=== PATIENT | female | born 1990 | race Caucasian/White ===

== ENCOUNTER 2017-02-25 18:39 | Outpatient (CLI) | payer OTHER ==
[2017-02-25 19:35] VITALS: BP 115/70; PULSE 87; RESP 18; TEMP 97.8
--- NOTE | 2017-02-26 08:30 | P.MSEPDOC ---
Presenting Problems - Arrival Data Date of Arrival on Unit: 02/25/17 Time of Arrival on Unit: 18:50 Mode of Transport: Wheelchair - Complaint OB-Reason for Admission/Chief Complaint: Signs/Symptoms UTI Medical History - Information : 3 Para: 2 Term: 2 : 0 Abortions: Spontaneous or Elective: 0 Number of Living Children: 2 - Gestational Age Expected Date of Delivery: 06/07/17 Gestational Age by MEET (wks/days): 25 Weeks and 4 Days Review of Systems - Review of Systems Constitutional: No problems Breast: No problems ENT: No problems Cardiovascular: No problems Respiratory: No problems Gastrointestinal: No problems Genitourinary: Dysuria, Increased frequency Musculoskeletal: No problems Neurological: No problems Skin: No problems Comment: Previously right flank pain onset at 15:00 and at previous visit to [facility] at 17:00 on 02/25 Vital Signs - Temperature Temperature: 97.8 F Temperature Source: Oral - Pulse Right Brachial Pulse Rate: 87 Pulse Assessment Method: Automatic Cuff - Respirations Respiratory Rate: 18 Oxygen Delivery Method: Room Air O2 Sat by Pulse Oximetry: 100 - Blood Pressure Right Arm Blood Pressure: 115/70 Blood Pressure Mean: 85 Blood Pressure Source: Automatic Cuff Medical Screen Scoring (Pre) - Cervical Exam Dilation: Exam Deferred Effacement: Exam Deferred Membranes: Intact - Uterine Contractions Frequency: N/A Duration: N/A Intensity: N/A - Maternal Vital Signs Maternal Temperature: N/A Maternal Blood Pressure: N/A Signs of Preeclampsia: N/A Maternal Respirations: N/A - Maternal Trauma Maternal Trauma: N/A - Total Score Total Score (Pre): 0 - Level of Risk Level of Risk: N/A Physician Notification (Pre) - Physician Notified Physician/Practitioner Notifed:: Dr. Simental Spoke With: Dr. Simental New Order Received: Yes (Discharte) - Notification Comment Comment: Dr. Simental notified of urinalysis results and admission complaints of bladder pains, freq uti, right flank pain previously, now diminished. Discharge instructions to orally hydrate and strain urine, call office in am for follow with dr. Acuna. and to return to [facility] if pain returns Medical Screen Scoring (Post) - Cervical Exam Dilation: Exam Deferred Effacement: Exam Deferred Membranes: Intact - Uterine Contractions Frequency: N/A Duration: N/A Intensity: N/A - Maternal Vital Signs Maternal Temperature: N/A Maternal Blood Pressure: N/A Signs of Preeclampsia: N/A Maternal Respirations: N/A - Maternal Trauma Maternal Trauma: N/A - Total Score Total Score (Post): 0 - Post Treatment Level of Risk Post Treatment Level of Risk: N/A Physician Notification (Post) - Physician Notified Physician Notified Date: 02/25/17 Physician Notified Time: 19:12 Physician/Practitioner Notified:: Dr. Simental Spoke With: Dr. Simental New Order Received: Yes (Discharge Home) - Notification Comment Comment: Dr. Simental notified of pt status. Discharge pt home. Pt instructed to increase fluids and to call on 02/26 and set up apt with Dr. Acuna. Trice Hodges RN, Preceptor. Agrees with evaluation of Radha Martin RN Disposition - Disposition OB Disposition: Discharge to home Discharge Date: 02/25/17 Discharge Time: 19:20 I agree with the RN Medical Screening Exam: Yes Risk & Benefit of care provided described in d/c instruction: Yes Diagnosis: RELATED CONDITIONS, UNSPECIFIED, SECOND TRIMESTER
== END 2017-02-25 19:20 | disposition home or self-care (01) ==
LOC: FBPOP 18:39
PROVIDERS: ATTEND Obstetrics & Gynecology
DX: O99.89 Other specified diseases and conditions complicating pregnancy, childbirth and the puerperium (principal); R30.0 Dysuria; R35.0 Frequency of micturition; Z3A.25 25 weeks gestation of pregnancy

== ENCOUNTER → 2017-02-26 | Outpatient (CLI) | payer OTHER ==
[2017-02-26 12:18] LABS: CH 33.7; CHCM 35.9; HCT 33.9 % (34.0-46.0); HDW 2.91; HGB 12.1 gm/dL (11.4-16.0); MCH 33.6 pg (25.0-35.0); MCHC 35.5 g/dL (31.0-37.0); MCV 94.6 fL (80.0-100.0); Mean Platelet Volume 7.4; RBC 3.59 m/uL (3.80-5.40); RDW 13.5 % (11.5-15.5); WBC 9.5 k/uL (3.8-10.6)
[2017-02-26 12:37] LABS: Non-African American GFR(MDRD) >60 (>60 ml/min/1.73 sqM)
[2017-02-26 13:05] LABS: Hepatitis B Surface Ag Index 0.05
[2017-02-26 19:22] LABS: Treponemal Ab Non-Reactive (Non-Reactive)
[2017-02-27 04:27] LABS: Toxoplasma Antibody (IgG) <3.0 IU/mL (<7.2)
== END | disposition home or self-care (01) ==
LOC: LABWHC1 10:59
PROVIDERS: ATTEND Obstetrics & Gynecology
DX: Z34.82 Encounter for supervision of other normal pregnancy, second trimester (principal); Z3A.00 Weeks of gestation of pregnancy not specified
CPT/HCPCS: 36415; 82565; 82950; 85027; 86762; 86777; 86778; 86780; 86850; 86900; 86901; 87340; 87390

== ENCOUNTER 2017-06-02 08:00 | Inpatient (IN) | payer OTHER ==
[2017-06-02 13:08] VITALS: BMI 24.7
--- NOTE | 2017-06-02 18:53 | P.HPOB ---
History of Present Illness H&P Date: 06/02/17 Chief Complaint: Repeat with tubal This is a 26-year-old female 3 para 2 with an estimated date of confinement of 06/08/2017, estimated gestational age of 39-2/7 weeks, who presents to labor and delivery for scheduled repeat section with bilateral partial salpingectomy. She admits to good movement. She has been feeling irregular mild contractions. She wishes permanent sterilization. Her has been complicated by gestational diabetes. She has been seen by maternal- medicine and has been monitored weekly. She is currently on metformin 500 mg twice daily. Her sugars have been in fairly good control on the metformin. She has been getting twice weekly nonstress tests in addition. labs: GC/chlamydia-negative Obstetrical ultrasound-normal anatomy HIV-nonreactive Syphilis antibody-nonreactive 1 hour Glucola-198 Hepatitis B surface antigen-negative Hemoglobin-12.1 Toxoplasma-negative Rubella-immune Blood type-O+ Antibody screen-negative Group B streptococcus-positive Obstetrical history: . History of 2 previous sections. Gynecologic history: No history of sexual transmitted diseases. Social history: She is single. She is currently unemployed. Review of Systems Constitutional: Denies chills, Denies fever Eyes: denies blurred vision, denies pain Ears, nose, mouth and throat: Denies headache, Denies sore throat Cardiovascular: Denies chest pain, Denies shortness of breath Respiratory: Denies cough Gastrointestinal: Denies abdominal pain, Denies diarrhea, Denies nausea, Denies vomiting Genitourinary: Reports pelvic pain, Reports Musculoskeletal: Reports low back pain Integumentary: Denies pruritus, Denies rash Neurological: Denies numbness, Denies weakness Psychiatric: Denies anxiety, Denies depression Past Medical History Past Medical History: Asthma, GERD/Reflux Additional Past Medical History / Comment(s): gestational diabetes History of Any Multi-Drug Resistant Organisms: None Reported Past Surgical History: Section (2) Past Anesthesia/Blood Transfusion Reactions: No Reported Reaction Past Psychological History: No Psychological Hx Reported Smoking Status: Never smoker Past Alcohol Use History: None Reported Past Drug Use History: None Reported - Past Family History Mother Family Medical History: No Reported History Medications and Allergies Home Medications Medication Instructions Recorded Confirmed Type Pnv No.95/Ferrous Fum/Folic AC 1 each PO DAILY 06/02/17 06/02/17 History [ Multivitamin Tablet] metFORMIN HCL [Glucophage] 500 mg PO BID 06/02/17 06/02/17 History Allergies Allergy/AdvReac Type Severity Reaction Status Date / Time ceftriaxone sodium Allergy Unknown Verified 06/02/17 12:59 [From Rocephin] Exam Osteopathic Statement: *. No significant issues noted on an osteopathic structural exam other than those noted in the History and Physical/Consult. - Vital Signs Vital signs: Intake and Output 06/02/17 06/02/17 06/02/17 06:59 14:59 22:59 Other: Weight 59.421 kg Patient Weight 06/03/17 06:59 Weight 59.421 kg HEENT: Within normal limits Heart: Regular rate and rhythm Lungs: Clear to auscultation bilaterally Abdomen: Cervix: Closed thick high. heart tones: 140s by Doppler Extremities: Negative Homans Assessment and Plan (1) 39 weeks gestation of Status: Acute (2) Previous delivery affecting Status: Acute (3) Family planning Status: Acute Plan: Proceed with repeat low transverse section with bilateral partial salpingectomy. I have discussed the risks, benefits, and alternative therapies for the above- mentioned procedure and for both sedation/anesthesia as well as necessary blood products administration, if indicated, as they pertain to this patient. The patient has indicated her understanding and acceptance of the risks and procedures discussed.
[2017-06-03] MEDS ORDERED: LACTATED RINGERS 1,000 ML IV ONE (06:25)
[2017-06-03] MEDS ORDERED: CLINDAMYCIN 900 MG in DEXTROSE 5% IN WATER 50 ML IVPB STA ×2 (06:25)
[2017-06-03] MEDS ORDERED: LIDOCAINE 1% 20 ML VIAL (10MG/ML) FOR IV START INTRADERMA PRN (06:25)
[2017-06-03] MEDS ORDERED: LACTATED RINGERS 1,000 ML IV SCH (06:25)
[2017-06-03] MEDS ORDERED: CITRIC ACID-SODIUM CITRATE 15 ML CUP PO ONE (06:25)
[2017-06-03 06:57] LABS: Basophils % (A) 0 %; CH 31.3; CHCM 33.2; Eosinophils # (A) 0.2 k/uL (0-0.7); Eosinophils % (A) 2 %; HCT 37.4 % (34.0-46.0); HDW 3.25; HGB 12.3 gm/dL (11.4-16.0); Luc # (Auto) 0.28; Luc % (Auto) 3; Lymphocytes # (A) 2.5 k/uL (1.0-4.8); Lymphocytes % (A) 29 %; MCH 31.4 pg (25.0-35.0); MCV 95.2 fL (80.0-100.0); Mean Platelet Volume 7.9; Monocytes # (A) 0.6 k/uL (0-1.0); Monocytes % (A) 7 %; Neutrophils % (A) 59 %; RBC 3.93 m/uL (3.80-5.40); RDW 14.7 % (11.5-15.5); WBC 8.5 k/uL (3.8-10.6)
[2017-06-03 07:08] LABS: Glucose,Whole Blood 92 mg/dL (75-99)
[2017-06-03] MEDS ORDERED: NALBUPHINE 10 MG/ML AMPUL ONE (07:55)
[2017-06-03] MEDS ORDERED: fentaNYL (PF) 50 MCG/ML 2 ML AMP ONE (07:55)
[2017-06-03] MEDS ORDERED: MORPHINE SULFATE (PF) 0.3 MG/0.3 ML SYR ONE (07:55)
[2017-06-03] MEDS ORDERED: KETOROLAC 30 MG/ML 1 ML VIAL ONE (07:55)
[2017-06-03] MEDS ORDERED: ONDANSETRON 4 MG/2 ML VIAL ONE (07:55)
[2017-06-03] MEDS ORDERED: OXYTOCIN 10 UNIT/ML 1 ML VIAL ONE (07:55)
[2017-06-03] MEDS ORDERED: OXYTOCIN 20 UNITS/1000 ML NS 1,000 ML IV SCH (08:40)
[2017-06-03] MEDS ORDERED: ONDANSETRON 4 MG/2 ML VIAL IVP PRN ×2 (08:40→08:58)
[2017-06-03] MEDS ORDERED: METOCLOPRAMIDE 5 MG/ML 2 ML VIAL IVP PRN (08:40)
[2017-06-03] MEDS ORDERED: ACETAMINOPHEN TAB 325 MG TAB PO PRN (08:40)
[2017-06-03] MEDS ORDERED: LANOLIN CREAM 5 GM TUBE TOPICAL PRN (08:40)
[2017-06-03] MEDS ORDERED: diphenhydrAMINE 50 MG/ML 1 ML VIAL IVP PRN ×2 (08:40→08:58)
[2017-06-03] MEDS ORDERED: diphenhydrAMINE 50 MG CAP PO PRN (08:40)
[2017-06-03] MEDS ORDERED: Acetaminophen-Codeine 300-30mg TAB PO PRN (08:40)
[2017-06-03] MEDS ORDERED: diphenhydrAMINE 25 MG CAP PO PRN (08:40)
[2017-06-03] MEDS ORDERED: ZOLPIDEM 5 MG TAB PO PRN (08:40)
[2017-06-03] MEDS ORDERED: NALOXONE 0.4 MG/ML 1 ML VIAL IV PRN ×2 (08:40→08:58)
--- NOTE | 2017-06-03 08:40 | P.OP ---
Date of Procedure: 06/03/17 Preoperative Diagnosis: 1. Intrauterine at 39-2/7 weeks. 2. History of previous section. 3. Family-planning. 4. Gestational diabetes Postoperative Diagnosis: Same Procedure(s) Performed: Repeat low transverse section with bilateral partial salpingectomy Anesthesia: spinal (Duramorph) Surgeon: Daniella Acuna [employer] Home Attendant #1: Sohail Nash Estimated Blood Loss (ml): 400 Pathology: other (Placenta, portions of right and left fallopian tubes) Condition: stable Disposition: floor Indications for Procedure: This is a 26-year-old female 2 para 0 at 39-2/7 weeks who presents for scheduled repeat section with bilateral salpingectomy for family planning. I have discussed the risks, benefits, and alternative therapies for the above- mentioned procedure and for both sedation/anesthesia as well as necessary blood products administration, if indicated, as they pertain to this patient. The patient has indicated her understanding and acceptance of the risks and procedures discussed. Operative Findings: A viable female is noted in the vertex presentation with scores of 8 at 1 minute and 9 at 5 minutes and infant weight of 6 lbs. 14 oz. Nuchal cord 2 was noted. Normal uterus tubes and ovaries are noted. Description of Procedure: The patient is taken to the operating room where she is placed in the dorsal supine position with leftward tilt after spinal Duramorph anesthesia is given. She is prepped and draped in the normal sterile fashion. Skin was tested and found to be adequately anesthetized. A Pfannenstiel skin incision was made with a scalpel. A second knife was used to carry the incision down to the underlying layer of fascia. The fascia was nicked in the midline with a scalpel and then extended laterally bilaterally with Mauricio scissors. The anterior lip of the fascia was grasped with 2 Louis clamps and then dissected off the underlying rectus muscle in the midline with Mauricio scissors. The inferior aspect of the fascial incision was grasped with 2 Louis clamps and dissected off the underlying rectus muscle and the midline with Mauricio scissors. Next the peritoneum layer was tented up with 2 hemostats and then entered sharply with the scalpel. The incision is extended superiorly and inferiorly with Metzenbaum scissors. Next a DeLee retractor is placed. The vesicouterine peritoneum is entered sharply with Metzenbaum scissors and extended laterally bilaterally with Metzenbaum scissors and then the bladder flap is pushed inferiorly. The lower uterine segment is incised in transverse fashion with the scalpel and then bluntly entered with a hemostat. Clear fluid is noted. The incision was then extended laterally bilaterally with 2 fingers. Next the 's head is delivered through the incision. Nose and mouth are bulb suctioned. Nuchal cord 2 was reduced around the 's head. The remainder of the infant is easily delivered and placed on mother's abdomen. Cord is clamped and cut. Infant is taken to warmer by nursing staff. Uterine fundus is gently massaged and placenta is delivered manually. Uterus is exteriorized and cleared of all clots and debris. Uterine incision is closed with 0 Vicryl suture in a running locked fashion. A second layer of 0 Vicryl suture is used in a running fashion for hemostasis. Good hemostasis is noted. Next attention is turned to the tubes. The right fallopian tube is grasped in the midportion with a hemostat. The mesosalpinx is entered with Bovie cautery. 0 Vicryl suture is tied 2 times around both the distal and proximal portions of the tube. Next the knuckle of tube is removed with Metzenbaum scissors. The ends of the tube are cauterized with Bovie cautery. Excellent hemostasis is noted. Posterior cul-de-sac is suctioned of all clots and debris. Uterus is returned to the abdomen. Incision is noted to be hemostatic. Both tubal sites are visualized and appear to be hemostatic. Peritoneal layer is closed with 0 Vicryl suture in a running fashion. Muscle layer is reapproximated with 0 Vicryl suture in interrupted fashion. Fascia layer is then closed with 0 PDS suture with 2 sutures meeting in the midline and the knots buried in either side and in the midline. The subcutaneous tissue was then closed with 2-0 Vicryl suture. Skin layer was then closed with torrey. All sponge and needle counts are correct. The patient is taken to recovery room in stable condition.
[2017-06-03] MEDS ORDERED: MORPHINE SULFATE 4 MG/ML SYRINGE IVP PRN (08:58)
[2017-06-03 09:53] LABS: Hemoglobin A1C 4.7 % (4.2-6.1)
[2017-06-03] MEDS: diphenhydrAMINE 50 MG/ML 1 ML VIAL IVP PRN ×2 (10:17→18:21)
[2017-06-03] MEDS: LACTATED RINGERS 1,000 ML IV SCH ×2 (10:54→18:35)
[2017-06-03] MEDS: SENNOSIDES-DOCUSATE SODIUM 1 EACH TAB PO SCH (20:50)
[2017-06-03] MEDS: Acetaminophen-Codeine 300-30mg TAB PO PRN (22:49)
[2017-06-04] MEDS: KETOROLAC 30 MG/ML 1 ML VIAL IVP PRN ×3 (00:13→15:42)
[2017-06-04] MEDS: SENNOSIDES-DOCUSATE SODIUM 1 EACH TAB PO SCH ×3 (00:54→19:44)
[2017-06-04] MEDS: LACTATED RINGERS 1,000 ML IV SCH (00:54)
--- NOTE | 2017-06-04 05:42 | P.PNOBGPC ---
Subjective - Subjective Principal diagnosis: Status post repeat section with tubal postoperative day #1 Interval history: Patient is doing well. She has been and bleeding. She is urinating without difficulty. She is passing flatus but no bowel movement yet. She is bottle feeding without difficulty. Lochia is decreasing. Patient reports: Reports appetite normal, Reports voiding normally, Reports pain well controlled, Reports ambulating normally [place]: doing well, bottle feeding Objective - Vital Signs Latest vital signs: Vital Signs Temp Pulse Resp BP Pulse Ox 06/04/17 02:00 16 98 06/04/17 00:00 98.6 F 79 16 123/74 06/03/17 22:55 81 16 99 06/03/17 22:00 99 06/03/17 21:00 98.6 F 88 16 118/77 99 06/03/17 20:00 98.9 F 99 16 114/75 06/03/17 18:33 97 06/03/17 18:00 97 06/03/17 17:00 98.7 F 84 16 118/58 96 06/03/17 16:00 98.7 F 96 16 118/58 96 06/03/17 15:00 18 06/03/17 14:52 99.4 F 80 16 107/55 97 06/03/17 12:50 16 06/03/17 12:00 96.8 F L 72 16 132/76 96 06/03/17 10:41 96.9 F L 55 L 16 145/88 96 06/03/17 10:11 96.6 F L 61 16 132/84 100 06/03/17 09:45 16 98 06/03/17 09:39 96.0 F L 67 16 110/74 06/03/17 09:26 69 18 116/76 98 06/03/17 09:11 96.3 F L 74 18 114/67 97 06/03/17 08:58 18 97 06/03/17 08:56 95 18 118/78 06/03/17 08:41 96.7 F L 95 18 117/75 97 06/03/17 06:20 96.6 F L 94 16 114/70 100 Intake and Output 06/03/17 06/03/17 06/04/17 14:59 22:59 06:59 Intake Total 1000 Output Total 1450 1100 Balance -1450 -1100 1000 Intake: Intake, IV Titration 1000 Amount Lactated Ringers 1,000 ml 1000 @ 125 mls/hr IV .Q8H [facility] Rx#:[id number] Output: Urine 850 1100 Uretheral ([place]) 100 Estimated Blood Loss 600 Other: Voiding Method Indwelling Catheter # Voids 1 1 # Bowel Movements 0 # Emeses 0 - Exam Extremities: Present: normal. Absent: tenderness Abdomen: Present: normal appearance, soft (Positive bowel sounds 4). Absent: distention, tenderness Incision: Present: normal, intact, other (Scant bloody discharge noted in the midportion of the incision, but no active bleeding) Uterus: Present: normal, firm. Absent: tenderness Assessment and Plan (1) 39 weeks gestation of Current Visit: Yes Status: Acute Code(s): Z3A.39 - 39 WEEKS GESTATION OF SNOMED Code(s): 76827555 (2) Previous delivery affecting Current Visit: Yes Status: Acute Code(s): O34.219 - MATERNAL CARE FOR UNSP TYPE SCAR FROM PREVIOUS DEL SNOMED Code(s): 654091507 (3) Family planning Current Visit: Yes Status: Acute Code(s): Z30.09 - ENCOUNTER FOR OTH GENERAL CNSL AND ADVICE ON CONTRACEPTION SNOMED Code(s): 09301438 (4) delivery delivered Narrative/Plan: Impression is status post repeat section with bilateral partial salpingectomy postoperative day #1. Plan is to continue with postoperative care today. Encouraged ambulation. If still doing well tomorrow, may be a little discharge home tomorrow. Current Visit: Yes Status: Acute Code(s): O82 - ENCOUNTER FOR DELIVERY WITHOUT INDICATION SNOMED Code(s): 620782397
[2017-06-04 07:19] LABS: Basophils % (A) 0 %; CH 31.5; CHCM 32.7; Eosinophils # (A) 0.2 k/uL (0-0.7); Eosinophils % (A) 2 %; HCT 32.4 % (34.0-46.0); HDW 3.17; HGB 10.6 gm/dL (11.4-16.0); Luc # (Auto) 0.26; Luc % (Auto) 3; Lymphocytes # (A) 2.2 k/uL (1.0-4.8); Lymphocytes % (A) 22 %; MCH 31.7 pg (25.0-35.0); MCHC 32.7 g/dL (31.0-37.0); MCV 96.9 fL (80.0-100.0); Mean Platelet Volume 8.4; Monocytes # (A) 0.6 k/uL (0-1.0); Monocytes % (A) 6 %; Neutrophils # (A) 6.8 k/uL (1.3-7.7); Neutrophils % (A) 67 %; RBC 3.35 m/uL (3.80-5.40); RDW 14.7 % (11.5-15.5); WBC 10.1 k/uL (3.8-10.6); WBC (Perox) 10.22
[2017-06-04] MEDS: SIMETHICONE 80 MG CHEWABLE PO PRN (11:06)
[2017-06-04] MEDS: Acetaminophen-Codeine 300-30mg TAB PO PRN ×3 (13:05→23:17)
[2017-06-04] MEDS: IBUPROFEN 600 MG TAB PO PRN (21:10)
[2017-06-04] MEDS ORDERED: INFLUENZA VACCINE (6 MOS+) 60 MCG/0.5 ML SYRINGE IM ONE (21:29)
[2017-06-05] MEDS: IBUPROFEN 600 MG TAB PO PRN ×2 (03:36→11:24)
[2017-06-05] MEDS: SIMETHICONE 80 MG CHEWABLE PO PRN (03:37)
[2017-06-05] MEDS: Acetaminophen-Codeine 300-30mg TAB PO PRN (06:24)
--- NOTE | 2017-06-05 08:15 | P.DS ---
Providers Date of admission: 06/03/17 06:12 Expected date of discharge: 06/05/17 Attending physician: Daniella Acuna Primary care physician: Stated None - Discharge Diagnosis(es) (1) 39 weeks gestation of Current Visit: Yes Status: Acute (2) Previous delivery affecting Current Visit: Yes Status: Acute (3) Family planning Current Visit: Yes Status: Acute (4) delivery delivered Current Visit: Yes Status: Acute Hospital Course: This is a 26-year-old female 3 para 2 at 39 and one sevenths weeks who presented for scheduled repeat section with bilateral partial salpingectomy. She underwent the above-noted procedure on 06/03/2017 and delivered a viable female infant in the vertex presentation with scores of 8 at 1 minute and 9 at 5 minutes, infant weight of 6 lbs. 14 oz. Her postoperative course has been essentially uncomplicated. She has been ambulating. She is passing flatus but no bowel movement yet. Her pain is fairly well controlled with ibuprofen and Tylenol 3. She is bottle feeding. Lochia is decreasing. Vital signs are stable. Abdomen is soft with positive bowel sounds 4. Incision is clean dry and intact. Fundus is minimally tender. Extremities show negative Homans. Impression is status post repeat low transverse section with bilateral partial esophagectomy postoperative day #2. Plan is to discharge home today. Vishal will be removed and Steri-Strips placed prior to discharge. Routine postoperative and instructions are given. She will be given a prescription for ibuprofen and Tylenol 3. She is advised to follow up in the office in approximately one week for a postoperative check and in 6 weeks for check. She is advised to call the office if she has any further questions or concerns prior to her appointment time. Procedures: Repeat low transverse section with bilateral partial salpingectomy on 06/03/2017 Patient Condition at Discharge: Stable Plan - Discharge Summary New Discharge Prescriptions: New Acetaminophen-Codeine 300-30mg [Tylenol w/codeine #3] 1 each PO Q4HR PRN #30 tab PRN Reason: Mild Pain Ibuprofen [Motrin] 600 mg PO Q6HR PRN #60 tab PRN Reason: Mild Pain Or Fever >= 100.5 Continue Pnv No.95/Ferrous Fum/Folic AC [ Multivitamin Tablet] 1 each PO DAILY Discontinued metFORMIN HCL [Glucophage] 500 mg PO BID Discharge Medication List Pnv No.95/Ferrous Fum/Folic AC [ Multivitamin Tablet] 1 each PO DAILY [History] Acetaminophen-Codeine 300-30mg [Tylenol w/codeine #3] 1 each PO Q4HR PRN #30 tab 06/05/17 [Rx] Ibuprofen [Motrin] 600 mg PO Q6HR PRN #60 tab 06/05/17 [Rx] Follow up Appointment(s)/Referral(s): Daniella Acuna DO [Doctor of Osteopathic Medicine] - 1 Week Activity/Diet/Wound Care/Special Instructions: Instructions 1. Do not begin any exercise program for 3 weeks. 2. Do not resume sexual relations for 3 weeks or longer if uncomfortable. 3. You may take tub baths or showers at any time. 4. You may use tampons if desired after 3 weeks. 5. Keep the area of episiotomy (stitches) clean and dry. 6. If you are not nursing, wear a good fitting, supportive bra during the day and limit fluid intake for at least 1 week to prevent breast engorgement. 7. Call the office, [phone], within the next week to make appointment for your 6 week checkup if it has not already been made. 8. Report any of the following occurrences to the doctor promptly: a. Heavy, excessive bleeding b. Chills, fever c. Burning or frequency of urination d. Pain or redness and breasts if nursing e. Increasing pain or swelling in episiotomy (stitches). In addition to the above instructions, the following additional should be followed: 1. No heavy lifting or straining (exercising) until after 6 week checkup. 2. Keep abdominal incision clean and dry: You may wear a dressing if more comfortable. 3. Make office appointment for 10 days after going home or as instructed by her doctor. Discharge Disposition: HOME SELF-CARE
[2017-06-05] MEDS: SENNOSIDES-DOCUSATE SODIUM 1 EACH TAB PO SCH (08:41)
[2017-06-05 09:22] VITALS: BP 116/63; PULSE 80; RESP 14; TEMP 98
== END 2017-06-05 11:40 | disposition home or self-care (01) | DRG 540 ==
LOC: 4FBP 06-03 06:12
PROVIDERS: ADMIT Obstetrics & Gynecology; ATTEND Obstetrics & Gynecology
PROC: 0UB70ZZ Excision of Bilateral Fallopian Tubes, Open Approach (ICD-10-PCS; principal; 2017-06-03 08:00)
PROC: 10D00Z1 Extraction of Products of Conception, Low, Open Approach (ICD-10-PCS; principal; 2017-06-03 08:00)
DX: O34.211 Maternal care for low transverse scar from previous cesarean delivery (principal); O24.425 Gestational diabetes mellitus in childbirth, controlled by oral hypoglycemic drugs; O69.81X0 Labor and delivery complicated by cord around neck, without compression, not applicable or unspecified; Z37.0 Single live birth; Z3A.39 39 weeks gestation of pregnancy; Z79.84 Long term (current) use of oral hypoglycemic drugs; Z30.2 Encounter for sterilization
CPT/HCPCS: 83036; 85025; 86850; 86900; 86901; 88302; 88307; 90686